=== PATIENT | female | born 1950 | race Caucasian/White ===

== ENCOUNTER → 2016-06-09 | Outpatient (CLI) | payer MEDICARE, OTHER ==
--- NOTE | 2016-06-09 16:00 | REP ---
CT CHEST WITH I-LOGIC PROTOCOL: 06/09/2016. Findings. There is a reconstructed set of images using the noncontrast CT images done this date for CT chest. Reconstructions with the I-LOGIC protocol according to the format requested by the pulmonary medicine referring physician. Please see the CT chest report this same date. There is no professional charge for this note. Signed by Adonis Pulido MD 06/09/2016 07:37 P
--- NOTE | 2016-06-09 16:11 | REP ---
CT CHEST WITHOUT CONTRAST: 06/09/2016. Clinical history: Left upper lobe spiculated lesion on screening low-dose CT. Comparison: 05/13/2016. Technique: Noncontrast images with coronal and sagittal reconstructions and images using the I-Logic protocol. Findings: The lung ortega are well inflated. There is an irregular spiculated lesion in the anterior segment of the left upper lobe 2.3 x 1.7 x 1.7 cm. There is stranding to the periphery and towards the hilum. There is subpleural fibrotic changes bilaterally with the subpleural blebs noted. In the right lower lobe posterolaterally centered over the posterior axillary line is a zone of triangular-shaped subpleural lesion with central and peripheral lucencies in general triangular-shape. Adjacent to it is a calcified granuloma. There is some cylindrical bronchiectatic change in the lower lung zones. There is a 5 mm nodule along the major fissure in the right lower lobe on image 62. Scattered areas of minor pleural plaque and some calcified pleural plaques on both diaphragms. There is also calcified granulomata in the spleen and liver. There is no pleural effusion or air bronchograms from acute infiltrate. Some ill-defined nodular changes noted in the left lower lobe lateral basal segment on image 65 up to 10 mm and pleural-based. Also smaller spiculated nodule was in the anterior segment of the left and right upper lobes on images 29 and 24 respectively with some ill-defined interstitial fibrotic changes. Heart is not enlarged and no pericardial thickening or effusion. Calcifications in the aorta without aneurysm. Nodes in the mediastinum show the largest as the AP window at 11.8 mm in short axis with precarinal node up to 11 mm. Subcentimeter right paratracheal node is also noted. No axillary, supraclavicular mass. Bones show degenerative disc changes with marginal osteophytes and some vacuum phenomenon lower thoracic region but no acute compression deformity. Sternum, manubrium, medial clavicles, AC joints, glenohumeral joints, scapulae and ribs and the upper lumbar levels included were all without acute finding and some degenerative change. Upper abdomen show clips from prior cholecystectomy, ascites. Adrenal glands without mass, that portion of pancreas included unremarkable. No hiatal hernia. That portion of liver included without a mass. IMPRESSION: 1. Advanced COPD with fibrosis, bronchiectatic change and subpleural blebs and interstitial pulmonary fibrosis noted. 2. Irregular spiculated lesion left upper lobe peripherally 2.3 x 1.7 x 1.7 cm stranding towards the hilum is seen on the previous study. 3. Calcified pleural plaques diaphragm, anterior chest wall, and calcifications in the spleen and liver. Prior granulomatous disease and might be asbestosis. 4. Subpleural right lower lobe 1 cm nodule with a triangular-shaped complex cystic triangular-shaped lesion 3.5 cm in the right lower lobe and other small nodules as described. Findings certainly suspicious for a malignancy. No effusion or pneumothorax. Some mediastinal nodes as described. Signed by Adonis Pulido MD 06/09/2016 07:38 P
== END | disposition home or self-care (01) ==
LOC: M RAD 14:17
PROVIDERS: ATTEND Internal Medicine Pulmonary Disease
DX: R91.8 Other nonspecific abnormal finding of lung field (principal); J44.9 Chronic obstructive pulmonary disease, unspecified

== ENCOUNTER → 2016-06-23 | Day surgery (SDC) | payer MEDICARE ==
[~2016-06-23] VITALS: Ht 157.5 cm; Wt 70.3 kg
[~2016-06-23] MED LIST: ASPI81TA85 PO; BACL10TA2 PO; CELE1CAP9 PO; CLAR10CA3 PO; CYMB60CA3 PO; EPINEPHrine 1MG/10ML SYRINGE 1.5IN As Ordered ONE; EPINEPHrine INJ 1 MG/ML 1ML VIAL/AMP As Ordered ONE; GLYCOPYRROLATE INJ 0.2 MG/ML 2 ML VIAL As Ordered ONE; HYDR-3719 PO; LIDOCAINE 1% SDV INJ 30 ML VIAL As Ordered ONE; LIDOCAINE 2% INJ 100 MG/5 ML SDV (FOR ANES.) As Ordered ONE; LIDOCAINE 4% TOPICAL SOLN 50 ML BTL As Ordered ONE; LIDOCAINE VISCOUS 2% SOLN 15ML UDC As Ordered ONE; LR 1,000 ML IV SCH; MIDAZOLAM INJ 2 MG/2 ML VIAL (J2250) As Ordered ONE; NEOSTIGMINE 1MG/ML 5 ML SYRINGE (J2710) As Ordered ONE; ONDANSETRON 4MG/2ML VIAL (J2405) As Ordered ONE; ONDANSETRON 4MG/2ML VIAL (J2405) IV PRN; OXYB10TA PO; PROPOFOL 200 MG/20 ML VIAL As Ordered ONE; RIZA10TA4 PO; ROCURONIUM BROMIDE 50 MG/5 ML VIAL As Ordered ONE; THROMBIN SOLN 5,000 UNITS VIAL As Ordered ONE; TOPI1TAB31 PO; dexameTHASONE 4 MG/ML 1ML VIAL (J1100) As Ordered ONE; fentaNYL 100 MCG/2 ML INJECTION (J3010) As Ordered ONE; fentaNYL 100 MCG/2 ML INJECTION (J3010) IV PRN
--- NOTE | 2016-06-23 10:30 | REP ---
Clinical: Postoperative assessment. Technique: Portable upright examination. Comparison: None. Findings: Chronic interstitial changes are appreciated. Hilar adenopathy cannot be excluded. Nodular densities in the periphery of the right mid/lower lung zone identified. No obvious effusion. No pneumothorax. Skeletal structures intact. Impression: 1. Chronic changes 2. Suspected hilar adenopathy and nodular densities in the right mid/lower lung zone. Signed by Wilian Roberts MD 06/23/2016 10:22 A
[2016-06-23 11:30] VITALS: BP 113/68
--- NOTE | 2016-06-23 12:24 | RO ---
DATE OF PROCEDURE: 06/23/2016 PREOPERATIVE DIAGNOSIS: Abnormal chest CT scan with bilateral pulmonary nodules. POSTOPERATIVE DIAGNOSIS: Abnormal chest CT scan with bilateral pulmonary nodules. PROCEDURE: ENB with FNA, transbronchial biopsies and BAL.. SURGEON: Dr. Choco Sparks APPIAN BPM DEVELOPER: ANESTHESIA: General. PROCEDURE NOTE: The procedure explained and consent obtained. While she had bilateral lesions, the largest one was in the left upper lobe, which was mapped. [place] procedure followed. Ms. Cullen was intubated by anesthesia and they managed pain and sedation. The bronchoscope was then inserted into the endotracheal tube. Both the left and right lungs were examined. There was a small amount of mucoid secretions which were aspirated. Following this, automatic registration was done. Using electromagnetic navigation bronchoscopy (ENB), the left upper lobe lesion was located. This was confirmed by fluoroscopy. Following this, a fine needle cutting needle was used. This was followed by five transbronchial biopsies. Following this, another fine needle aspirate was done. This was followed by bronchoalveolar lavage (BAL). After assuring visual hemostasis, the bronchoscope was withdrawn. A postoperative chest x-ray is pending. FINDINGS: Small/scant amount of mucoid secretions. SPECIMENS: 1. Left upper lobe nodule cutting fine needle aspirate sent to cytology. 2. Left upper lobe nodule transbronchial biopsies sent to pathology. 3. Left upper lobe nodule BAL sent to cytology. NICOLE
== END | disposition home or self-care (01) ==
LOC: M SDC 06:33
PROVIDERS: ATTEND Internal Medicine Pulmonary Disease
DX: C34.12 Malignant neoplasm of upper lobe, left bronchus or lung (principal); R06.00 Dyspnea, unspecified; R05 Cough; R94.2 Abnormal results of pulmonary function studies; J43.2 Centrilobular emphysema; J47.9 Bronchiectasis, uncomplicated; M19.90 Unspecified osteoarthritis, unspecified site; R32 Unspecified urinary incontinence; F17.218 Nicotine dependence, cigarettes, with other nicotine-induced disorders; Z79.899 Other long term (current) drug therapy; Z79.82 Long term (current) use of aspirin; Z79.891 Long term (current) use of opiate analgesic
CPT/HCPCS: 31624; 31627; 31628; 31629; 71010; 88108; 88172; 88173; 88305; 88313; 88341; 88342; J1100; J2250; J2405; J2710; J3010

== ENCOUNTER → 2016-08-04 | Outpatient (REF) | payer MEDICARE ==
[~2016-08-04] MED LIST changes: -EPINEPHrine 1MG/10ML SYRINGE 1.5IN As Ordered ONE; -EPINEPHrine INJ 1 MG/ML 1ML VIAL/AMP As Ordered ONE; -GLYCOPYRROLATE INJ 0.2 MG/ML 2 ML VIAL As Ordered ONE; -LIDOCAINE 1% SDV INJ 30 ML VIAL As Ordered ONE; -LIDOCAINE 2% INJ 100 MG/5 ML SDV (FOR ANES.) As Ordered ONE; -LIDOCAINE 4% TOPICAL SOLN 50 ML BTL As Ordered ONE; -LIDOCAINE VISCOUS 2% SOLN 15ML UDC As Ordered ONE; -LR 1,000 ML IV SCH; -MIDAZOLAM INJ 2 MG/2 ML VIAL (J2250) As Ordered ONE; -NEOSTIGMINE 1MG/ML 5 ML SYRINGE (J2710) As Ordered ONE; -ONDANSETRON 4MG/2ML VIAL (J2405) As Ordered ONE; -ONDANSETRON 4MG/2ML VIAL (J2405) IV PRN; -PROPOFOL 200 MG/20 ML VIAL As Ordered ONE; -ROCURONIUM BROMIDE 50 MG/5 ML VIAL As Ordered ONE; -THROMBIN SOLN 5,000 UNITS VIAL As Ordered ONE; -dexameTHASONE 4 MG/ML 1ML VIAL (J1100) As Ordered ONE; -fentaNYL 100 MCG/2 ML INJECTION (J3010) As Ordered ONE; -fentaNYL 100 MCG/2 ML INJECTION (J3010) IV PRN
== END ==
LOC: M LAB REF 08:12
DX: C34.90 Malignant neoplasm of unspecified part of unspecified bronchus or lung (principal); C78.00 Secondary malignant neoplasm of unspecified lung